=== PATIENT | female | born 2000 | race Caucasian/White ===

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

== ENCOUNTER 2021-01-05 09:06 | Emergency (ER) | payer OTHER ==
[~2021-01-05] VITALS: Ht 165.1 cm; Wt 66.8 kg
[2021-01-05] MEDS ORDERED: MAALOX/HYOSCYAMINE/LIDOCAINE 45 ML BTL ONE (09:59)
[2021-01-05] MEDS ORDERED: ONDANSETRON 2MG/ML, 2ML ONE (09:59)
[2021-01-05] MEDS ORDERED: FAMOTIDINE 20 MG/2 ML ONE (09:59)
[2021-01-05] MEDS ORDERED: KETOROLAC 30 MG/1 ML ONE (09:59)
[2021-01-05] MEDS ORDERED: SODIUM CHLORIDE FLUSH 10ML SYR IVF ONE (10:00)
[2021-01-05] MEDS ORDERED: KETOROLAC 30 MG/1 ML IVPush ONE (10:00)
[2021-01-05] MEDS ORDERED: SODIUM CHLORIDE 0.9% 1,000ML IVBOLUS ONE (10:00)
[2021-01-05] MEDS ORDERED: ONDANSETRON 2MG/ML, 2ML IVPush ONE (10:00)
[2021-01-05] MEDS ORDERED: MAALOX/HYOSCYAMINE/LIDOCAINE 45 ML BTL PO ONE (10:00)
[2021-01-05] MEDS ORDERED: FAMOTIDINE 20 MG/2 ML IVPush ONE (10:00)
[2021-01-05 10:11] LABS: MICROSCOPIC INDICATED
--- NOTE | 2021-01-05 10:12 | NUR ---
PT STATES ABD PAIN AND SOB X1 WEEK. PT STATES HX OF ABD PAIN. PT STATES IV IN RT ARM STARTED [employer]Y GOODS EXAMINER BY SHAWN CHATTERJEE, NEW IV STARTED. PT PLACED ON MONITORS, VSS. PT AWARE OF POC, VERBALIZED UNDERSTANDING. UA COLLECTED, SENT TO LAB. CONT TO MONITOR.
[2021-01-05 10:16] LABS: BASOPHILS % (AUTO) 0 % (0-1); EOSINOPHILS % (AUTO) 3 % (1-7); LYMPHOCYTES % (AUTO) 7 % (22-44); MEAN CORPUSCULAR HEMOGLOBIN 28.7 pg (27.0-34.8); MEAN CORPUSCULAR HGB CONC 34.3 g/dL (32.4-35.8); MEAN PLATELET VOLUME 8.9 fL (7.4-10.4); MONOCYTES % (AUTO) 7 % (2-9); NEUTROPHILS % (AUTO) 83 % (42-75); PLATELET COUNT 244 x10^3/uL (130-400); RED BLOOD COUNT 5.16 x10^6/uL (3.82-5.3); RED CELL DISTRIBUTION WIDTH 13.6 % (9.6-15.2)
[2021-01-05 10:27] LABS: ALANINE AMINOTRANSFERASE 30 U/L (12-78); ALBUMIN 3.4 g/dL (3.4-5.0); ANION GAP 9 mmol/L (5-15); CALCIUM 8.8 mg/dL (8.5-10.1); CHLORIDE 106 mmol/L (98-107)
[2021-01-05 10:32] LABS: ALKALINE PHOSPHATASE 49 U/L (45-117); BILIRUBIN,TOTAL 0.5 mg/dL (0.2-1.0); TOTAL PROTEIN 8.7 g/dL (6.4-8.2)
--- NOTE | 2021-01-05 11:30 | NUR ---
PT SLEEPING IN BED, NO DISTRESS. UP FOR ERMD RECHECK. CONT TO MONITOR.
--- NOTE | 2021-01-05 12:53 | NUR ---
MEDS REQUESTED FROM PHARM.
[2021-01-05] MEDS ORDERED: FOSFOMYCIN 3 GM PACKET ONE (13:13)
[2021-01-05] MEDS ORDERED: FOSFOMYCIN 3 GM PACKET PO ONE (13:30)
--- NOTE | 2021-01-05 13:32 | NUR ---
PT'S MOTHER UPSET PT TO BE D/C. EXPLAINED TO PT'S MOTHER AT HOME POC. OFFERED ERMD TO SPEAK WITH PT AND PT'S MOTHER AGAIN ABOUT D/C, PT AND PT'S MOTHER REFUSED.
[2021-01-05] MEDS ORDERED: FUROSEMIDE 40 MG/4 ML ONE (13:47)
[2021-01-05 13:49] VITALS: BP 112/75
--- NOTE | 2021-01-05 13:52 | NUR ---
D/C INSTRUCTIONS REVIEWED WITH PT AND MOTHER, PT'S MOTHER REQUESTING TO SPEAK TO MOLD SPRAYER.
--- NOTE | 2021-01-05 14:06 | NUR ---
PT AND MOTHER GIVEN OPTION TO SPEAK WITH MD, BOTH REFUSED AND REQUESTED TO SPEAK TO LABORER SYRUP MACHINE.
--- NOTE | 2021-01-05 14:12 | NUR ---
WARNING COORDINATION METEOROLOGISTBRIGHT MCFARLANE SPEAK WITH PT AND PT'S MOTHER PER PT'S MOTHER'S REQUEST.
--- NOTE | 2021-01-05 14:21 | NUR ---
recruiting internship note: Service recovery provided.
== END 2021-01-05 14:22 | disposition home or self-care (01) ==
LOC: ED 10:00
DX: N30.00 Acute cystitis without hematuria (principal); R00.0 Tachycardia, unspecified; Z90.89 Acquired absence of other organs; Z90.49 Acquired absence of other specified parts of digestive tract
CPT/HCPCS: 36415; 71045; 80053; 81001; 83605; 83690; 84703; 85025; 87086; 93005; 96361; 96374; 96375; 99285; J1885; J2405; J7030